=== PATIENT | male | born 1980 | race Caucasian/White ===

== ENCOUNTER 2021-02-16 20:32 | Emergency (ER) | payer MEDICAID ==
[~2021-02-16] VITALS: Ht 180.3 cm; Wt 150.0 kg
[2021-02-16] MEDS ORDERED: SODIUM CHLORIDE 0.9% 1,000 ML IV ONE ×2 (21:30→21:45)
[2021-02-16] MEDS ORDERED: FAMOTIDINE 20MG TABLET PO ONE (21:30)
[2021-02-16] MEDS ORDERED: ONDANSETRON 4MG ODT PO ONE (21:30)
[2021-02-16 21:42] LABS: HEMATOCRIT. 39.3 % (42.0-52.0); HEMOGLOBIN. 13.5 g/dL (14.0-18.0); MEAN CORPUSCULAR HEMOGLOBIN 28.8 pg (28.0-32.0); MEAN CORPUSCULAR VOLUME 83.8 fL (80.0-94.0); MEAN PLATELET VOLUME 8.1 fl (7.4-10.4); PLATELET 307 x1000/uL (130-400); RED BLOOD CELL COUNT 4.69 mill/uL (4.7-6.1); RED CELL DISTRIBUTION WIDTH 14.3 % (11.6-14.6)
[2021-02-16 21:45] LABS: CHLORIDE 108 mEq/L (98-107)
[2021-02-16] MEDS ORDERED: FAMOTIDINE 20MG/2ML VIAL IV ONE (21:45)
[2021-02-16] MEDS ORDERED: ONDANSETRON HCL 4MG/2ML INJ IV ONE (21:45)
[2021-02-16 22:08] LABS: PLATELET ESTIMATE NORMAL
[2021-02-17] MEDS ORDERED: ONDA4TAB11 PO (00:18)
[2021-02-17 00:55] VITALS: BP 124/61
== END 2021-02-17 01:01 | disposition home or self-care (01) ==
LOC: ER 20:32
DX: R11.2 Nausea with vomiting, unspecified (principal); T50.B95A Adverse effect of other viral vaccines, initial encounter; Y92.018 Other place in single-family (private) house as the place of occurrence of the external cause; R00.0 Tachycardia, unspecified; I10 Essential (primary) hypertension; E66.9 Obesity, unspecified; Z68.42 Body mass index [BMI] 45.0-49.9, adult
CPT/HCPCS: 36415; 71046; 80053; 84484; 85025; 93005; 96374; 96375; 99285; J2405; J3490; J7030; Z7610

== ENCOUNTER 2023-12-26 11:28 | Emergency (ER) | payer MEDICAID ==
[~2023-12-26] VITALS: Ht 175.3 cm; Wt 145.0 kg
[~2023-12-26 11:28] MED LIST: ONDA4TAB11 PO
[2023-12-26 11:34] VITALS: TEMP 98.1; O2SAT 99
[2023-12-26] MEDS: ONDANSETRON 4MG ODT PO ONE (11:45)
[2023-12-26 11:59] LABS: CHLORIDE 110 mEq/L (98-107); POTASSIUM 3.4 mEq/L (3.5-5.1); SODIUM 141 mEq/L (136-145)
[2023-12-26 12:00] LABS: CALCIUM 8.9 mg/dL (8.7-10.4); CARBON DIOXIDE 19 mEq/L (21-32)
[2023-12-26 12:05] LABS: BASOPHILS % 0.7 % (0.0-2.0); CREATININE 0.8 mg/dL (0.6-1.3); EOSINOPHILS % 3.5 % (0.0-5.0); GLUCOSE 113 mg/dL (70-105); HEMATOCRIT. 46.5 % (42.0-52.0); LYMPHOCYTES % 22.9 % (20.0-50.0); MEAN CORPUSCULAR HEMOGLOBIN 28.5 pg (28.0-32.0); MEAN CORPUSCULAR HGB CONC 34.5 g/dL (31.0-37.0); MEAN CORPUSCULAR VOLUME 82.5 fL (80.0-94.0); MEAN PLATELET VOLUME 8.5 fl (7.4-10.4); MONOCYTES % 10.5 % (2.0-8.0); NEUTROPHILS % 62.4 % (40.0-76.0); PLATELET 300 x1000/uL (130-400); RED BLOOD CELL COUNT 5.63 mill/uL (4.7-6.1); RED CELL DISTRIBUTION WIDTH 15.3 % (11.6-14.6); WHITE BLOOD COUNT 6.6 x1000/uL (4.5-11.0)
[2023-12-26 12:06] LABS: UREA NITROGEN BLOOD 8 mg/dL (9-23)
[2023-12-26 12:07] LABS: ALANINE AMINOTRANSFERASE 70 IU/L (10-49); ALBUMIN 4.4 g/dL (3.2-4.8); ASPARTATE AMINOTRANSFERASE 59 IU/L (<34); BILIRUBIN DIRECT 0.2 mg/dL (<=3.0)
[2023-12-26 12:08] LABS: BILIRUBIN TOTAL 0.4 mg/dL (0.1-1.0); PROTEIN TOTAL 7.5 g/dL (6.0-8.3)
[2023-12-26 12:11] LABS: ETHANOL BLOOD < 10 mg/dL (<10)
[2023-12-26] MEDS: METOCLOPRAMIDE HCL 5MG TABLET PO ONE (14:34)
[2023-12-26 15:47] VITALS: BP 146/94; PULSE 80; RESP 17
== END 2023-12-26 15:48 | disposition home or self-care (01) ==
LOC: ER 11:28
DX: R11.2 Nausea with vomiting, unspecified (principal); I10 Essential (primary) hypertension; Z98.890 Other specified postprocedural states
CPT/HCPCS: 80076; 80048; 80320; 83690; 85025; 36415; 99283; J8597; Q0162; G0480